=== PATIENT | male | born 1955 | race Caucasian/White ===

== ENCOUNTER 2016-09-29 22:41 | Emergency (ER) | payer MEDICARE, BC ==
[~2016-09-29] VITALS: Ht 182.9 cm; Wt 167.0 kg
[~2016-09-29 22:41] MED LIST: ALLO300T2 PO; AMIT100 PO; AMLO10 PO; ATOR80TA41 PO; BACT800T5 PO; CLON.2 PO; CLON1TAB PO; ECOT81TA2; FURO80 PO; GLUC1000 PO; INSU1.2I SQ; ISOS60 PO; KLOR20TA6 PO; LEVO50TA4 PO; LIDO5T TOP; LISI-366 PO; METO50CR PO; NEUR800T PO; OXYC30TA PO; PERC10TA27 PO; STAR60TA PO
--- NOTE | 2016-09-29 23:48 | RADRPT ---
EXAM DATE/TIME: 09/29/2016 23:21 [facility] COMPARISON: No previous studies available for comparison. INDICATIONS : Fall. Right knee pain. MEDICAL HISTORY : None. SURGICAL HISTORY : None. ENCOUNTER: Initial ACUITY: 1 day PAIN SCORE: 6/10 LOCATION: Right lateral FINDINGS: Four view examination of the right knee demonstrates no evidence of fracture or dislocation. Bony mi neralization is normal. The articular surfaces are intact. The suprapatellar soft tissues have a no rmal configuration. CONCLUSION: No acute osseous injury. Jose Ramon Pedersen MD on September 29, 2016 at 23:46 Board Certified Radiologist. This report was verified electronically.
--- NOTE | 2016-09-29 23:48 | RADRPT ---
EXAM DATE/TIME: 09/29/2016 23:16 [facility] COMPARISON: No previous studies available for comparison. INDICATIONS : Fall. Right lower leg pain. Abrasions. MEDICAL HISTORY : None. SURGICAL HISTORY : None. ENCOUNTER: Initial ACUITY: 1 day PAIN SCORE: 6/10 LOCATION: Right lateral FINDINGS: Two view examination of the right tibia demonstrates no evidence of fracture or dislocation. Perioste al thickening along the posterior proximal cortex of the tibia may represent a tendinous attachment. There is some atherosclerotic calcification of the regional vasculature. CONCLUSION: 1. No fracture. 2. Periosteal thickening along the posterior proximal diaphysis of the tibia is overtly benign and ma y represent a tendinous attachment. Jose Ramon Pedersen MD on September 29, 2016 at 23:44 Board Certified Radiologist. This report was verified electronically.
--- NOTE | 2016-09-30 00:05 | PD ---
HPI Chief Complaint: Fall Time Seen by Provider: 22:57 Travel History International Travel<30 days: No Contact w/Intl Traveler<30days: No Traveled to known affect area: No History of Present Illness HPI 61-year-old male presents to the ER today brought in by EMS because he states that he stepped in a mud puddle and slipped and fell onto his right leg. He has abrasions to his right leg. He is currently complaining of right leg pains. He denies any head injury, loss of consciousness, or any other injuries. Modifying Factors: None Associated Signs & Symptoms: Fall, right leg injury Risk Factors: None PFSH Past Medical History Diabetes: Yes Patient Takes Glucophage: No Hypertension: Yes ?: Not Past Surgical History Abdominal Surgery: Yes (LAP BAND, ) Cardiac Surgery: Yes (X CATH) Other Surgery: Yes (PYELONIAL CYST) Social History Alcohol Use: No Tobacco Use: Yes (PIPE AT TIMES ) Substance Use: No Allergies-Medications (Allergen,Severity, Reaction): Coded Allergies: No Known Allergies (Unverified , 09/29/16) Patient reports no known allergies. Reported Meds & Prescriptions Reported Meds & Active Scripts Active Bactrim DS (Sulfamethoxazole-Trimethoprim DS) 1 Tab Tab 1 Tab PO BID Reported Toujeo Solostar (Insulin Glargine) 300 Unit/Ml Inj 10 Units SQ DAILY Oxycodone (Oxycodone HCl) 30 Mg Tab 30 Mg PO Q6HR Norvasc (Amlodipine Besylate) 10 Mg Tab 10 Mg PO DAILY Metoprolol Succinate ER 50 mg (Metoprolol Succinate) 50 Mg Tab 50 Mg PO DAILY Lisinopril 40 mg (Lisinopril) 40 Mg Tab 1 Tab PO DAILY Lidoderm Patch 5% (Lidocaine HCl) 1 Patch Patch 1 Patch TOP DAILY Apply patch to the most painful area. Patch(es) may remain in place for up to 12 hours in any 24 hour period. Levothyroxine 50 mcg (Levothyroxine Sodium) 50 Mcg Tab 50 Mcg PO DAILY Klor-Con M20 (Potassium Chloride Microencaps) 20 Meq Tab 20 Meq PO BID Ecotrin Low Strength (Aspirin) 81 Mg Tab Catapres 0.2 mg (Clonidine HCl) 0.2 Mg Tab 1 Tab PO Q8HR Elavil 100 Mg Tab (Amitriptyline HCl) 100 Mg Tab 100 Mg PO HS Starlix (Nateglinide) 60 Mg Tab 60 Mg PO TID Percocet 10/325 (Oxycodone/Acetaminophen) Oxycodone 10/325 Acetaminophen Tab 1 Tab PO TID Neurontin (Gabapentin) 800 Mg Tab 800 Mg PO TID Glucophage 1000 mg (Metformin HCl) 1,000 Mg Tab 1,000 Mg PO BID Lipitor 80 Mg Tab (Atorvastatin) 80 Mg Tab 80 Mg PO DAILY Lasix 80 Mg Tab (Furosemide) 80 Mg Tab 80 Mg PO DAILY Imdur 60 Mg (Isosorbide Mononitrate) 60 Mg Tabcr 60 Mg PO BID Clonazepam 1 Mg Tab 1 Mg PO BID Allopurinol 300 Mg Tab 300 Mg PO DAILY Review of Systems Except as stated in HPI: all other systems reviewed are Neg Physical Exam Narrative GENERAL: Well-nourished, well-developed large middle age white male patient in no acute distress. Awake and oriented 3. SKIN: Warm and dry. HEAD: Normocephalic. EYES: No scleral icterus. No injection or drainage. NECK: Supple, trachea midline. CARDIOVASCULAR: Regular rate and rhythm without murmurs, gallops, or rubs. RESPIRATORY: Breath sounds equal bilaterally. No accessory muscle use. GASTROINTESTINAL: Abdomen soft, protuberant, non-tender, nondistended. Pelvis: Stable and nontender to palpation. MUSCULOSKELETAL: No cyanosis, or edema. BACK: Nontender without obvious deformity. No CVA tenderness. EXTREMITIES: No clubbing, cyanosis, or edema. No joint tenderness, effusion, or edema noted. Abrasions to the right lateral leg, tender palpation throughout from knee down to ankle. No obvious deformities. Neurovascularly intact. Data Data Orders Knee, Complete (4vws) (09/29/16 22:57) Tibia/Fibula (Ap/Lat) (09/29/16 22:57) [facility] Medical Decision Making Medical Screen Exam Complete: Yes Emergency Medical Condition: Yes Medical Record Reviewed: Yes Differential Diagnosis Abrasions versus contusion versus strain versus acute fractures Narrative Course X-ray shows no signs of acute fractures. I suspect underlying contusion and strain of the knee. Abrasions were irrigated and dressed. My plan would be put the patient in a knee immobilizer, decreased weightbearing on the right leg , follow-up with primary care physician and orthopedics as needed. Return for any worsening in pain or new symptoms as needed. The plan has been discussed with him and he states understanding. Diagnosis Primary Impression: Strain of knee and leg, right Med/Other Pt SpecificInfo: Prescription(s) given Scripts Ibuprofen (Motrin Ib)200 Mg Knx390 Mg PO Q6H PRN (PAIN SCALE 1 TO 10) #21 TAB Ref 0 Prov:Sergio Beyer MD 09/30/16 Bacitracin Topical 500 Unit/Gm Oint1 Applic TOPICAL BID #30 GM Ref 0 Prov:Sergio Beyer MD 09/30/16 Disposition: 01 DISCHARGE HOME Condition: Stable Sergio Beyer MD Sep 30, 2016 00:05
[2016-09-30] MEDS ORDERED: BACI500O9 TOPICAL (00:08)
[2016-09-30] MEDS ORDERED: MOTR200T4 PO (00:08)
[2016-09-30 00:32] VITALS: BP 171/88; PULSE 92; RESP 14; O2SAT 96
== END 2016-09-30 01:11 | disposition home or self-care (01) ==
LOC: NEPE 22:41
DX: S86.811A Strain of other muscle(s) and tendon(s) at lower leg level, right leg, initial encounter (principal); E11.9 Type 2 diabetes mellitus without complications; I10 Essential (primary) hypertension; Z72.0 Tobacco use; S80.811A Abrasion, right lower leg, initial encounter; W01.0XXA Fall on same level from slipping, tripping and stumbling without subsequent striking against object, initial encounter
CPT/HCPCS: 73564; 73590; 99284; E0113; L1830

== ENCOUNTER 2017-11-09 03:58 | Observation (INO) | payer BC, MEDICARE ==
[2017-11-09] VITALS (8 sets, daily range): BP systolic 110–173; BP diastolic 58–92; PULSE 81–92; RESP 17–20; TEMP 97.2–98.7; O2SAT 94–98
[~2017-11-09 03:58] MED LIST changes: +BACI500O9 TOPICAL; +MOTR200T4 PO
[2017-11-09] MEDS ORDERED: NITROGLYCERIN 2% OINT 1 GM PACKET TOP ONE (04:30)
[2017-11-09] MEDS ORDERED: SODIUM CHLORIDE 0.9% FLUSH 10 ML FLUSH IVF PRN (04:30)
--- NOTE | 2017-11-09 04:43 | PD ---
HPI Chief Complaint: Cardiac Complaint Time Seen by Provider: 04:07 Travel History International Travel<30 days: No Contact w/Intl Traveler<30days: No Traveled to known affect area: No History of Present Illness HPI The patient is a 62 year old male who presents to the [facility] emergency department with a history of chest pain that has been coming and going for the last few weeks and usually occurs at rest and even awakens him from sound sleep. He reports that he went to his eyeglass cutter, Dr. Rodas regarding this and had a stress test done last week that was reportedly abnormal. He is in the process of being referred to Dr. Shine for cardiac catheterization. He reports that he awoke from sound sleep around 2 AM with recurrent pain. He reports that the pain is in the left side of his chest and radiates the left arm. He reports that the pain is a pressure sensation that was severe. He reports having shortness of breath associated with this, nausea, diaphoresis. He reports that he took an adult aspirin prior to arrival. He denies having any vomiting. He last moved his bowels earlier today. He denies having any worsening lower extremity edema. He does report having a prior history of congestive heart failure. The patient reports having a history of a heart murmur, 20% stenosis of his aortic valve, and 3 other leaky valves. He denies any prior history of coronary artery disease. On review of systems otherwise, the patient denies having any recent fevers, cough, congestion, neck pain, abdominal pain, diarrhea, urinary symptoms, or neurologic symptoms. 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 The patient has a history of pilonidal cyst resection, deviated septum repair, lap band placement and then removal, history of arthroscopy of the knees. Abdominal Surgery: Yes (LAP BAND, ) Cardiac Surgery: Yes (X CATH) Other Surgery: Yes (PYELONIAL CYST) Social History Alcohol Use: No Tobacco Use: Yes (PIPE AT TIMES ) Substance Use: No Allergies-Medications (Allergen,Severity, Reaction): Coded Allergies: No Known Allergies (Unverified Adverse Reaction, Unknown, 11/09/17) Patient reports no known allergies. Reported Meds & Prescriptions Reported Meds & Active Scripts Active Reported Melatonin 10 Mg-1 Mg Tab 10 Mg PO HS PRN Nortriptyline (Nortriptyline HCl) 75 Mg Cap 75 Mg PO HS Lipitor (Atorvastatin Calcium) 80 Mg Tab 80 Mg PO HS Levothyroxine (Levothyroxine Sodium) 75 Mcg Tab 75 Mcg PO DAILY Clonazepam 1 Mg Tab 1 Mg PO HS Toujeo Solostar Pen Inj (Insulin Glargine) 300 Unit/Ml Pen 80 Units SQ DAILY Dok Plus 50-8.6 mg (Sennosides-Docusate Sodium) 8.6 Mg-50 Mg Tab 1 Tab PO DAILY Lisinopril 40 Mg Tab 40 Mg PO DAILY Victoza Inj (Liraglutide Inj) 18 Mg/3 Ml Pen 1.8 Mg SQ ONCE Aspirin 81 Mg Chew 81 Mg CHEW DAILY Invokana (Canagliflozin) 300 Mg Tab 300 Mg PO DAILY Take before 1st meal of day. Norvasc (Amlodipine Besylate) 10 Mg Tab 10 Mg PO DAILY Gabapentin 400 Mg Cap 400 Cap PO QID Metoprolol Tartrate 25 Mg Tab 25 Mg PO DAILY Metformin (Metformin HCl) 1,000 Mg Tab 1,000 Mg PO BIDPC Lasix (Furosemide) 40 Mg Tab 40 Mg PO DAILY Klor-Con M20 (Potassium Chloride Microencaps) 20 Meq Tab 20 Meq PO BID Clonidine (Clonidine HCl) 0.1 Mg Tab 0.1 Mg PO BID Allopurinol 300 Mg Tab 300 Mg PO DAILY Oxycodone (Oxycodone HCl) 30 Mg Tab 30 Mg PO 5 TIMES A DAY PRN Percocet (Oxycodone-Acetaminophen) 10-325 mg Tab 1 Tab PO Q6H PRN Review of Systems Except as stated in HPI: all other systems reviewed are Neg General / Constitutional: No: Fever Eyes: No: Visual changes HENT: No: Headaches Cardiovascular: Positive: Chest Pain or Discomfort, Diaphoresis, Dyspnea on exertion Respiratory: No: Shortness of Breath Gastrointestinal: Positive: Nausea, No: Abdominal Pain Genitourinary: No: Dysuria Musculoskeletal: No: Pain Skin: No Rash Neurologic: No: Weakness Psychiatric: No: Depression Endocrine: No: Polydipsia Hematologic/Lymphatic: No: Easy Bruising Physical Exam Narrative General: The patient is a well-developed well-nourished male in no acute distress. Head and Neck exam: Head is normocephalic atraumatic. Eyes: EOMI, pupils are equal round and reactive to light. Nose: Midline septum with pink mucous membranes Mouth: Dentition unremarkable. Moist mucus membranes. Posterior oropharynx is not erythematous. No tonsillar hypertrophy. Uvula midline. Airway patent. Neck: No palpable lymphadenopathy. No nuchal rigidity. No thyromegaly. Cardiovascular: Regular rate and rhythm with a 2/6 systolic murmur, no gallops or rubs. No pulse deficits to the extremities on simultaneous auscultation and palpation of his radial artery Lungs: Clear to auscultation bilaterally. No wheezes, rhonchi, or rales. Abdomen: Soft, without tenderness to palpation in all 4 quadrants of the abdomen. No guarding, rebound, or rigidity. Normal bowel sounds are audible. No tenderness on palpation of McBurney's point. Negative Lanier sign. Extremities: No clubbing or cyanosis. The patient has trace pedal edema bilateral lower extremities with hyperpigmentation of the lower extremities consistent with venous stasis changes. 2+ pulses in all 4 extremities. No calf tenderness on palpation. Back: No costovertebral angle tenderness to palpation. Neurologic Exam: Grossly nonfocal. Skin Exam: No rash noted. Intact skin that is warm and dry. Data Data Last Documented VS Vital Signs Date Time Temp Pulse Resp B/P (MAP) Pulse Ox O2 Delivery O2 Flow Rate FiO2 11/09/17 06:15 84 20 115/61 (79) 95 Room Air 11/09/17 04:00 97.2 Orders Orders Electrocardiogram (11/09/17 04:16) B-Type Natriuretic Peptide (11/09/17 04:16) Ckmb (Isoenzyme) Profile (11/09/17 04:16) Complete Blood Count With Diff (11/09/17 04:16) Comprehensive Metabolic Panel (11/09/17 04:16) Magnesium (Mg) (11/09/17 04:16) Prothrombin Time / Inr (Pt) (11/09/17 04:16) Act Partial Throm Time (Ptt) (11/09/17 04:16) Troponin I (11/09/17 04:16) Lipase (11/09/17 04:16) Ecg Monitoring (11/09/17 04:16) Bilateral Bp Monitoring (11/09/17 04:16) Iv Access Insert/Monitor (11/09/17 04:16) Oximetry (11/09/17 04:16) Oxygen Administration (11/09/17 04:16) Nitroglycerin 2% Oint (Nitroglycerin 2% (11/09/17 04:30) Sodium Chloride 0.9% Flush (Ns Flush) (11/09/17 04:30) Nitroglycerin Sl (Nitrostat Sl) (11/09/17 04:30) Chest, Single Ap (11/09/17 04:16) CKMB (11/09/17 04:30) CKMB% (11/09/17 04:30) Place In Observation (11/09/17 ) Vital Signs (Adult) Q4H (11/09/17 06:37) Activity Bed Rest With Brp (11/09/17 ) Master Control Operator / Telemetry BENITA.Q8H (11/09/17 06:37) Notify Dr: Other (11/09/17 ) Sodium Chloride 0.9% Flush (Ns Flush) (11/09/17 09:00) Sodium Chloride 0.9% Flush (Ns Flush) (11/09/17 06:45) Aspirin (Aspirin) (11/09/17 09:00) Nitroglycerin Sl (Nitrostat Sl) (11/09/17 06:45) Acetaminophen (Tylenol) (11/09/17 06:45) Acetamin-Hydrocod 325-7.5 Mg ([place] 7.5 (11/09/17 06:45) Creatine Kinase (Cpk) (11/09/17 10:30) Creatine Kinase (Cpk) (11/09/17 16:30) Troponin I (11/09/17 10:30) Troponin I (11/09/17 16:30) Electrocardiogram (11/09/17 10:30) Electrocardiogram (11/09/17 16:30) Heparin Inj (Heparin Inj) (11/09/17 08:00) Consult Cardiology (11/09/17 ) Allopurinol (Zyloprim) (11/09/17 09:00) Amlodipine (Norvasc) (11/09/17 09:00) Atorvastatin (Lipitor) (11/09/17 21:00) Clonazepam (Klonopin) (11/09/17 21:00) Clonidine (Catapres) (11/09/17 09:00) Furosemide (Lasix) (11/09/17 09:00) Gabapentin (Neurontin) (11/09/17 09:00) Levothyroxine (Synthroid) (11/09/17 07:16) Metoprolol Tartrate (Lopressor) (11/09/17 09:00) Nortriptyline (Pamelor) (11/09/17 21:00) Potassium Chloride (Kcl) (11/09/17 09:00) Patient Own Medication (11/09/17 09:00) Lisinopril (Prinivil) (11/09/17 09:00) Melatonin (Melatonin) (11/09/17 06:45) Bedside Glucose BENITA.CSUGAR (11/09/17 06:43) Special Diet Instructions (11/09/17 06:43) Blood Glucose Goal (Criteria) (11/09/17 06:43) Hypoglycemia 70 Mg/Dl Or < (11/09/17 06:43) Notify Dr: Other (11/09/17 06:43) Dextrose 50% In Ariel (Vial) Inj (D50w (Vi (11/09/17 06:45) Glucagon Inj (Glucagon Inj) (11/09/17 06:45) Insulin Aspart Supplemtl Scale (Novolog (11/09/17 08:00) (Hub Use Only)Inp Phy Cons/Ref (11/09/17 ) Morphine Inj (Morphine Inj) (11/09/17 06:45) Admit Order (Ed Use Only) (11/09/17 06:49) Labs Laboratory Tests Test 11/09/17 04:30 White Blood Count 8.1 TH/MM3 Red Blood Count 5.92 MIL/MM3 Hemoglobin 17.8 GM/DL Hematocrit 52.3 % Mean Corpuscular Volume 88.4 FL Mean Corpuscular Hemoglobin 30.1 PG Mean Corpuscular Hemoglobin Concent 34.1 % Red Cell Distribution Width 15.0 % Platelet Count 256 TH/MM3 Mean Platelet Volume 7.3 FL Neutrophils (%) (Auto) 54.5 % Lymphocytes (%) (Auto) 31.6 % Monocytes (%) (Auto) 11.8 % Eosinophils (%) (Auto) 1.7 % Basophils (%) (Auto) 0.4 % Neutrophils # (Auto) 4.4 TH/MM3 Lymphocytes # (Auto) 2.6 TH/MM3 Monocytes # (Auto) 1.0 TH/MM3 Eosinophils # (Auto) 0.1 TH/MM3 Basophils # (Auto) 0.0 TH/MM3 CBC Comment DIFF FINAL Differential Comment Prothrombin Time 10.3 SEC Prothromb Time International Ratio 1.0 RATIO Activated Partial Thromboplast Time 27.1 SEC Blood Urea Nitrogen 17 MG/DL Creatinine 1.11 MG/DL Random Glucose 241 MG/DL Total Protein 8.3 GM/DL Albumin 3.7 GM/DL Calcium Level 9.4 MG/DL Magnesium Level 2.3 MG/DL Alkaline Phosphatase 165 U/L Aspartate Amino Transf (AST/SGOT) 32 U/L Alanine Aminotransferase (ALT/SGPT) 42 U/L Total Bilirubin 0.8 MG/DL Sodium Level 139 MEQ/L Potassium Level 3.9 MEQ/L Chloride Level 102 MEQ/L Carbon Dioxide Level 26.0 MEQ/L Anion Gap 11 MEQ/L Estimat Glomerular Filtration Rate 68 ML/MIN Total Creatine Kinase 128 U/L Creatine Kinase MB 3.6 NG/ML Troponin I 0.03 NG/ML B-Type Natriuretic Peptide 28 PG/ML Lipase 132 U/L [facility] Medical Decision Making Medical Screen Exam Complete: Yes Emergency Medical Condition: Yes Medical Record Reviewed: Yes Interpretation(s) Last Impressions Chest X-Ray 11/09/17 9236 Signed Impressions: Service Date/Time: Thursday, November 09, 2017 04:57 - CONCLUSION: Mild left base consolidation. Vaughn Lopez MD Differential Diagnosis STEMI versus non-STEMI, versus unstable angina, versus angina, versus pulmonary embolism, versus congestive heart failure exacerbation Narrative Course During the course of the patient's emergency department visit, the patient's history, examination, and differential diagnosis were reviewed with the patient. The patient was placed on a environmental monitoring technician with oximetry and frequent blood pressure monitoring. The patient had IV access obtained and blood work sent for analysis. The patient had an EKG done on arrival that shows a sinus rhythm with occasional ventricular premature complexes. QRS duration is 94 ms, QTC [address] segment elevation is noted, downsloping ST segments are noted in lead II, 3. No acute ST segment elevation. The patient was initially provided nitroglycerin sublingual every 5 minutes 3 as needed chest pain, nitroglycerin 1 inch to the chest wall. The patient reports taking an adult aspirin prior to arrival. The patient's studies were reviewed and remarkable for A white count of 8.1, hemoglobin 17.8, platelets 256 with 11.8 monocytes, CMP is remarkable for glucose of 241, alk phos 165, initial set of cardiac enzymes within normal limits, [employer] 28, lipase 132. PT 10.3, PTT 27.1. Chest x-ray shows mild left base consolidation that appears consistent with atelectasis on my review. The patient's results were discussed with the patient, including the plan of care. I explained that further testing and/ or monitoring is indicated based on the patient's history, examination, and/ or laboratory findings. Therefore, I recommended admission for additional evaluation. The patient expressed understanding and was agreeable with this plan. The patient was admitted to the hospital in stable condition and sent to a bed under the care of the [facility] service. Physician Communication Physician Communication The patient's case including history, pertinent physical examination findings, and laboratory studies were discussed with Dr. Enciso. It was agreed that the patient would be admitted to the [facility] service. Diagnosis Primary Impression: Chest pain, rule out acute myocardial infarction Additional Impression: Abnormal stress test Admitting Information Admitting Physician Requests: Observation Melanie Oseguera MD Nov 09, 2017 04:43
[2017-11-09 05:13] LABS: AUTOMATED NEUTROPHIL # 4.4 TH/MM3 (1.8-7.7); BASOPHIL % 0.4 % (0.0-2.0); EOSINOPHIL # 0.1 TH/MM3 (0-0.4); EOSINOPHIL % 1.7 % (0.0-4.0); HEMATOCRIT 52.3 % (39.0-51.0); HEMOGLOBIN 17.8 GM/DL (13.0-17.0); LYMPH % 31.6 % (9.0-44.0); LYMPHOCYTE # 2.6 TH/MM3 (1.0-4.8); MEAN CELL VOLUME 88.4 FL (80.0-100.0); MEAN CORPUSCULAR HEMOGLOBIN 30.1 PG (27.0-34.0); MEAN CORPUSCULAR HGB CONC 34.1 % (32.0-36.0); MEAN PLATELET VOLUME 7.3 FL (7.0-11.0); MONO % 11.8 % (0.0-8.0); NEUT % 54.5 % (16.0-70.0); PLATELET COUNT 256 TH/MM3 (150-450); RED BLOOD COUNT 5.92 MIL/MM3 (4.50-5.90); WHITE BLOOD COUNT 8.1 TH/MM3 (4.0-11.0)
[2017-11-09 05:20] LABS: PROTHROMBIN TIME - PATIENT 10.3 SEC (9.8-11.6)
[2017-11-09] MEDS ORDERED: NORT75CA PO (05:30)
[2017-11-09] MEDS ORDERED: OXYC30TA PO (05:30)
[2017-11-09] MEDS ORDERED: AMLO10 PO (05:30)
[2017-11-09] MEDS ORDERED: DOKTAB2 PO (05:30)
[2017-11-09] MEDS ORDERED: METO25TA3 PO (05:30)
[2017-11-09] MEDS ORDERED: LISI40TA PO (05:30)
[2017-11-09] MEDS ORDERED: LIPI80TA PO (05:30)
[2017-11-09] MEDS ORDERED: METF1000 PO (05:30)
[2017-11-09] MEDS ORDERED: KLOR20TA3 PO (05:30)
[2017-11-09] MEDS ORDERED: CANA300T PO (05:30)
[2017-11-09] MEDS ORDERED: GABA400C5 PO (05:30)
[2017-11-09] MEDS ORDERED: CLON0.1T PO (05:30)
[2017-11-09] MEDS ORDERED: ASPI-516 CHEW (05:30)
[2017-11-09] MEDS ORDERED: MELA1TAB18 PO (05:30)
[2017-11-09] MEDS ORDERED: CLON1TAB PO (05:30)
[2017-11-09] MEDS ORDERED: VICT18IN SQ (05:30)
[2017-11-09] MEDS ORDERED: INSU1.2I SQ (05:30)
[2017-11-09] MEDS ORDERED: LEVO75TA3 PO (05:30)
[2017-11-09] MEDS ORDERED: FURO1TAB60 PO (05:30)
[2017-11-09] MEDS ORDERED: PERC10TA27 PO (05:30)
[2017-11-09] MEDS ORDERED: ALLO300T2 PO (05:30)
[2017-11-09 05:44] LABS: ALT (GPT) 42 U/L (12-78)
--- NOTE | 2017-11-09 05:44 | RADRPT ---
EXAM DATE/TIME: 11/09/2017 04:57 [facility] COMPARISON: No previous studies available for comparison. INDICATIONS : Chest pain. MEDICAL HISTORY : None. SURGICAL HISTORY : None. ENCOUNTER: Initial ACUITY: 1 day PAIN SCORE: 5/10 LOCATION: Bilateral chest FINDINGS: Partially obscured left hemidiaphragm. Right lung clear. No pleural effusion or pneumothorax. Heart s ize upper limits of normal. CONCLUSION: Mild left base consolidation. Vaughn Lopez MD on November 09, 2017 at 5:42 Board Certified Radiologist. This report was verified electronically.
[2017-11-09 05:56] LABS: ALBUMIN 3.7 GM/DL (3.4-5.0); ALKALINE PHOSPHATASE 165 U/L (45-117); AST (GOT) 32 U/L (15-37); BLOOD UREA NITROGEN 17 MG/DL (7-18); CALCIUM 9.4 MG/DL (8.5-10.1); CHLORIDE 102 MEQ/L (98-107); CREATININE 1.11 MG/DL (0.60-1.30); GLOMERULAR FILTRATION RATE 68 ML/MIN (>89); GLUCOSE,RANDOM 241 MG/DL (74-106); MAGNESIUM 2.3 MG/DL (1.5-2.5); SODIUM (NA) 139 MEQ/L (136-145); TOTAL BILIRUBIN ADULT 0.8 MG/DL (0.2-1.0); TOTAL PROTEIN 8.3 GM/DL (6.4-8.2); TROPONIN I 0.03 NG/ML (0.02-0.05)
[2017-11-09] MEDS ORDERED: ACETAMINOPHEN/HYDROcodone 325 MG/7.5 MG TAB PO PRN (06:45)
[2017-11-09] MEDS ORDERED: NITROGLYCERIN 0.4 MG SL 25 TABS/BTL SL PRN (06:45)
[2017-11-09] MEDS ORDERED: MORPHINE SULFATE 2 MG/ML SYRINGE IV PUSH PRN (06:45)
[2017-11-09] MEDS ORDERED: GLUCAGON 1 MG/ML VIAL OTHER PRN (06:45)
[2017-11-09] MEDS ORDERED: ACETAMINOPHEN 500 MG CPLT PO PRN (06:45)
[2017-11-09] MEDS ORDERED: SODIUM CHLORIDE 0.9% FLUSH 10 ML FLUSH IV FLUSH PRN (06:45)
[2017-11-09] MEDS ORDERED: DEXTROSE 50% IN WATER 50 ML VIAL(D50) IV PUSH PRN (06:45)
[2017-11-09] MEDS ORDERED: MELATONIN 5 MG TAB PO PRN (06:45)
[2017-11-09] MEDS ORDERED: IOHEXOL 350 MG/ML 100 ML BTL (for Cath Lab) OTHER ONE (06:51)
[2017-11-09] MEDS ORDERED: HEPARIN SODIUM - SQ 10,000 UNITS/ML VIAL SQ SCH (08:00)
--- NOTE | 2017-11-09 08:01 | HHI.HP ---
[facility] Chon Goodwin D.O. Admission Diagnosis cp r/o ACS, h/o abnormal stress test Diagnoses: (1) Chest pain, rule out acute myocardial infarction Diagnosis: Principal Chief Complaint: chest pain Travel History International Travel<30 Days: No Contact w/Intl Traveler <30 Da: No Traveled to Known Affected Are: No History of Present Illness patient is a 62 y/o male with history of hypertension and diabetes who presented to ER with chest pain. he says that he's had on and off chest pain for the past month. he says that he has this pain when he's resting. he says that he woke up around two in the morning with chest pain. pain was localized to left upper chest with some radiation to the left arm. he didn't have any nausea, emesis or diaphoresis but had some sob. he says that he had a stress test about a week ago and ' he failed it'. he was in the process of seeing for cardiac cath.he's being followed up by . he says that he's been under a lot of stress lately. he was pain free at the time of my evaluation. Review of Systems Constitutional: DENIES: Fever, Weight loss, Chills, Night Sweats Eyes: DENIES: Blurred vision, Diplopia, Vision loss, Double Vision Ears, nose, mouth, throat: DENIES: Tinnitus, Vertigo, Throat pain, Epistaxis Respiratory: COMPLAINS OF: Shortness of breath, DENIES: Apneas, Cough, Snoring , Wheezing, Hemoptysis, Sputum production Cardiovascular: COMPLAINS OF: Chest pain, DENIES: Palpitations, Syncope, Dyspnea on Exertion, PND, Lower Extremity Edema, Orthopnea, Claudication Gastrointestinal: DENIES: Abdominal pain, Black stools, Bloody stools, Constipation, Diarrhea, Nausea, Vomiting, Difficulty Swallowing, Anorexia Genitourinary: DENIES: Urinary frequency, Urgency, Hematuria, Dysuria Musculoskeletal: DENIES: Joint pain, Muscle aches, Stiffness, Joint Swelling Integumentary: DENIES: Rash Neurologic: DENIES: Abnormal gait, Headache, Localized weakness, Paresthesias, Seizures, Speech Problems, Tremor, Poor Balance Psychiatric: DENIES: Anxiety, Confusion, Mood changes, Depression, Hallucinations, Agitation, Suicidal Ideation, Homicidal Ideation, Delusions Past Family Social History Past Medical History hypertension/ diabetes mellitus/ dyslipidemia/hypothyroidism/CHF? Past Surgical History cardiac cath. Reported Medications Melatonin 10 Mg-1 Mg Tab 10 Mg PO HS PRN Nortriptyline (Nortriptyline HCl) 75 Mg Cap 75 Mg PO HS Lipitor (Atorvastatin Calcium) 80 Mg Tab 80 Mg PO HS Levothyroxine (Levothyroxine Sodium) 75 Mcg Tab 75 Mcg PO DAILY Clonazepam 1 Mg Tab 1 Mg PO HS Toujeo Solostar Pen Inj (Insulin Glargine) 300 Unit/Ml Pen 80 Units SQ DAILY Dok Plus 50-8.6 mg (Sennosides-Docusate Sodium) 8.6 Mg-50 Mg Tab 1 Tab PO DAILY Lisinopril 40 Mg Tab 40 Mg PO DAILY Victoza Inj (Liraglutide Inj) 18 Mg/3 Ml Pen 1.8 Mg SQ ONCE Aspirin 81 Mg Chew 81 Mg CHEW DAILY Invokana (Canagliflozin) 300 Mg Tab 300 Mg PO DAILY Take before 1st meal of day. Norvasc (Amlodipine Besylate) 10 Mg Tab 10 Mg PO DAILY Gabapentin 400 Mg Cap 400 Cap PO QID Metoprolol Tartrate 25 Mg Tab 25 Mg PO DAILY Metformin (Metformin HCl) 1,000 Mg Tab 1,000 Mg PO BIDPC Lasix (Furosemide) 40 Mg Tab 40 Mg PO DAILY Klor-Con M20 (Potassium Chloride Microencaps) 20 Meq Tab 20 Meq PO BID Clonidine (Clonidine HCl) 0.1 Mg Tab 0.1 Mg PO BID Allopurinol 300 Mg Tab 300 Mg PO DAILY Oxycodone (Oxycodone HCl) 30 Mg Tab 30 Mg PO 5 TIMES A DAY PRN Percocet (Oxycodone-Acetaminophen) 10-325 mg Tab 1 Tab PO Q6H PRN Allergies: Coded Allergies: No Known Allergies (Unverified Adverse Reaction, Unknown, 11/09/17) Patient reports no known allergies. Active Ordered Medications Inpatient Medications Acetaminophen (Tylenol) 500 mg Q4H PRN PO HEADACHE; Start 11/09/17 at 06:45 Acetaminophen/ Hydrocodone Bitart ([place]illa 7.5-325 Mg) 1 tab Q4H PRN PO PAIN SCALE 1 TO 5; Start 11/09/17 at 06:45 Allopurinol (Zyloprim) 300 mg DAILY PO ; Start 11/09/17 at 09:00 Amlodipine Besylate (Norvasc) 10 mg DAILY PO ; Start 11/09/17 at 09:00 Aspirin (Aspirin) 325 mg DAILY PO ; Start 11/09/17 at 09:00 Atorvastatin Calcium (Lipitor) 80 mg HS PO ; Start 11/09/17 at 21:00 Clonazepam (KlonoPIN) 1 mg HS PO ; Start 11/09/17 at 21:00 Clonidine (Catapres) 0.1 mg BID PO ; Start 11/09/17 at 09:00 Dextrose (D50w (Vial) Inj) 50 ml UNSCH PRN IV PUSH HYPOGLYCEMIA-SEE COMMENTS; Start 11/09/17 at 06:45 Furosemide (Lasix) 40 mg DAILY PO ; Start 11/09/17 at 09:00 Gabapentin (Neurontin) 400 mg QID PO ; Start 11/09/17 at 09:00 Glucagon (Glucagon Inj) 1 mg UNSCH PRN OTHER HYPOGLYCEMIA-SEE COMMENTS; Start 11/09/17 at 06:45 Heparin Sodium (Porcine) (Heparin Inj) 5,000 units Q8H SQ ; Start 11/09/17 at 08 :00 Insulin Aspart (NovoLOG SUPPLEMENTAL SCALE) 1 ACHS SLIDING SCALE SQ ; Start at 08:00 Levothyroxine Sodium (Synthroid) 75 mcg DAILY@0600 PO ; Start 11/09/17 at 07:16 Lisinopril (Prinivil) 40 mg DAILY PO ; Start 11/09/17 at 09:00 Melatonin (Melatonin) 10 mg HS PRN PO SLEEP; Start 11/09/17 at 06:45 Metoprolol Tartrate (Lopressor) 25 mg DAILY PO ; Start 11/09/17 at 09:00 Morphine Sulfate (Morphine Inj) 2 mg Q3HR PRN IV PUSH PAIN SCALE 6 TO 10; Start 11/09/17 at 06:45 Nitroglycerin (Nitroglycerin 2% Oint) 1 inch ONCE ONCE TOP Last administered on 11/09/17at 04:47; Start 11/09/17 at 04:30; Stop 11/09/17 at 04:31; Status DC Nitroglycerin (Nitrostat Sl) 0.4 mg Q5M PRN SL ANGINA; Start 11/09/17 at 06:45 Nortriptyline HCl (Pamelor) 75 mg HS PO ; Start 11/09/17 at 21:00 Patient Own Medication 80 ea DAILY SQ ; Start 11/09/17 at 09:00 Potassium Chloride (KCl) 20 meq BID PO ; Start 11/09/17 at 09:00 Sodium Chloride (NS Flush) 2 ml UNSCH PRN IV FLUSH FLUSH AFTER USING IV ACCESS ; Start 11/09/17 at 06:45 Family History CAD in father. Social History smokes cigars occasionally- Physical Exam Vital Signs Vital Signs Date Time Temp Pulse Resp B/P (MAP) Pulse Ox O2 Delivery O2 Flow Rate FiO2 11/09/17 06:15 84 20 115/61 (79) 95 Room Air 11/09/17 04:49 91 20 115/59 (77) 95 Room Air 11/09/17 04:00 97.2 89 18 173/92 (119) 94 Physical Exam GENERAL: This is a well-nourished, well-developed patient, in no apparent distress. SKIN: No rashes, ecchymoses or lesions. Cool and dry. HEAD: Atraumatic. Normocephalic. No temporal or scalp tenderness. EYES: Pupils equal round and reactive. Extraocular motions intact. No scleral icterus. No injection or drainage. ENT: Nose without bleeding, purulent drainage or septal hematoma. Throat without erythema, tonsillar hypertrophy or exudate. Uvula midline. Airway patent. NECK: Trachea midline. No JVD or lymphadenopathy. Supple, nontender, no meningeal signs. CARDIOVASCULAR: Regular rate and rhythm without murmurs, gallops, or rubs. RESPIRATORY: Clear to auscultation. Breath sounds equal bilaterally. No wheezes , rales, or rhonchi. GASTROINTESTINAL: Abdomen soft, non-tender, nondistended. No hepato-splenomegaly , or palpable masses. No guarding. MUSCULOSKELETAL: Extremities without clubbing, cyanosis, or edema. No joint tenderness, effusion, or edema noted. No calf tenderness. Negative Homans sign bilaterally. NEUROLOGICAL: Awake and alert. Cranial nerves II through XII intact. Motor and sensory grossly within normal limits. Five out of 5 muscle strength in all muscle groups. Normal speech. Laboratory Laboratory Tests Test 11/09/17 04:30 White Blood Count 8.1 Red Blood Count 5.92 Hemoglobin 17.8 Hematocrit 52.3 Mean Corpuscular Volume 88.4 Mean Corpuscular Hemoglobin 30.1 Mean Corpuscular Hemoglobin Concent 34.1 Red Cell Distribution Width 15.0 Platelet Count 256 Mean Platelet Volume 7.3 Neutrophils (%) (Auto) 54.5 Lymphocytes (%) (Auto) 31.6 Monocytes (%) (Auto) 11.8 Eosinophils (%) (Auto) 1.7 Basophils (%) (Auto) 0.4 Neutrophils # (Auto) 4.4 Lymphocytes # (Auto) 2.6 Monocytes # (Auto) 1.0 Eosinophils # (Auto) 0.1 Basophils # (Auto) 0.0 CBC Comment DIFF FINAL Differential Comment Prothrombin Time 10.3 Prothromb Time International Ratio 1.0 Activated Partial Thromboplast Time 27.1 Blood Urea Nitrogen 17 Creatinine 1.11 Random Glucose 241 Total Protein 8.3 Albumin 3.7 Calcium Level 9.4 Magnesium Level 2.3 Alkaline Phosphatase 165 Aspartate Amino Transf (AST/SGOT) 32 Alanine Aminotransferase (ALT/SGPT) 42 Total Bilirubin 0.8 Sodium Level 139 Potassium Level 3.9 Chloride Level 102 Carbon Dioxide Level 26.0 Anion Gap 11 Estimat Glomerular Filtration Rate 68 Total Creatine Kinase 128 Creatine Kinase MB 3.6 Troponin I 0.03 B-Type Natriuretic Peptide 28 Lipase 132 Result Diagram: 11/09/1742911/09/17429 Imaging Last Impressions Chest X-Ray 11/09/17415 Signed Impressions: Service Date/Time: Thursday, November 09, 2017 04:57 - CONCLUSION: Mild left base consolidation. Vaughn Lopez MD Caprini VTE Risk Assessment Caprini VTE Risk Assessment: Mod/High Risk (score >= 2) Caprini Risk Assessment Model Point Value = 1 Point Value = 2 Point Value = 3 Point Value = 5 Age 41-60 Minor surgery BMI > 25 kg/m2 Swollen legs Varicose veins or History of unexplained or recurrent spontaneous Oral contraceptives or hormone replacement Sepsis (< 1 month) Serious lung disease, including pneumonia (< 1 month) Abnormal pulmonary function Acute myocardial infarction Congestive heart failure (< 1 month) History of inflammatory bowel disease Medical patient at bed rest Age 61-74 Arthroscopic surgery Major open surgery (> 45 min) Laparoscopic surgery (> 45 min) Malignancy Confined to bed (> 72 hours) Immobilizing plaster cast Central venous access Age >= 75 History of VTE Family history of VTE Factor V Leiden Prothrombin [id number] Lupus anticoagulant Anticardiolipin antibodies Elevated serum homocysteine Heparin-induced thrombocytopenia Other congenital or acquired thrombophilia Stroke (< 1 month) Elective arthroplasty Hip, pelvis, or leg fracture Acute spinal cord injury (< 1 month) Prophylaxis Regimen Total Risk Factor Score Risk Level Prophylaxis Regimen 0-1 Low Early ambulation 2 Moderate Order ONE of the following: *Sequential Compression Device (SCD) *Heparin 5000 units SQ BID 3-4 Higher Order ONE of the following medications: *Heparin 5000 units SQ TID *Enoxaparin/Lovenox 40 mg SQ daily (WT < 150 kg, CrCl > 30 mL/min) *Enoxaparin/Lovenox 30 mg SQ daily (WT < 150 kg, CrCl > 10-29 mL/min) *Enoxaparin/Lovenox 30 mg SQ BID (WT < 150 kg, CrCl > 30 mL/min) AND/OR *Sequential Compression Device (SCD) 5 or more Highest Order ONE of the following medications: *Heparin 5000 units SQ TID (Preferred with Epidurals) *Enoxaparin/Lovenox 40 mg SQ daily (WT < 150 kg, CrCl > 30 mL/min) *Enoxaparin/Lovenox 30 mg SQ daily (WT < 150 kg, CrCl > 10-29 mL/min) *Enoxaparin/Lovenox 30 mg SQ BID (WT < 150 kg, CrCl > 30 mL/min) AND *Sequential Compression Device (SCD) Assessment and Plan Assessment and Plan A/P - chest pain- reportedly had an abnormal stress test last week trend the cardiac enzymes- continue aspirin, BB and statin - consult cardiology. -hypertension; resume home meds- will monitor and adjust the regimen as needed. -diabetes mellitus; accu-check with SSI -history of CHF- continue lasix -hypothyroidism; resume Levothyroxine -DVT prophylaxis with subq Heparin Discussed Condition With the patient. Kayli Pascal MD Nov 09, 2017 08:01
[2017-11-09] MEDS: NITROGLYCERIN 0.4 MG SL 25 TABS/BTL SL SCH (08:44)
[2017-11-09] MEDS: cloNIDine HCL 0.1 MG TAB PO SCH ×2 (09:00→21:13)
[2017-11-09] MEDS ORDERED: METOPROLOL TARTRATE 25 MG TAB PO SCH (09:00)
[2017-11-09] MEDS ORDERED: INSULIN GLARGINE 80 UNIT SQ SCH (09:00)
[2017-11-09] MEDS ORDERED: [UNRECOGNIZED DRUG - OTHER] SQ SCH (09:00)
[2017-11-09] MEDS: SODIUM CHLOR 0.9% 1000 ML INJ 1,000 ML IV SCH (09:34)
[2017-11-09] MEDS ORDERED: diphenhydrAMINE HCL 50 MG CAP PO SCH (09:45)
[2017-11-09] MEDS ORDERED: HEPARIN-D5W 25,000 U/250 ML 250 ML IV PRN (09:45)
[2017-11-09] MEDS ORDERED: DIAZEPAM 5 MG TAB PO SCH (09:45)
[2017-11-09] MEDS ORDERED: HEPARIN SODIUM - IV 10,000 UNITS/10 ML VIAL IV PUSH ONE (09:45)
[2017-11-09] MEDS: FUROSEMIDE 40 MG TAB PO SCH (09:53)
[2017-11-09] MEDS: ASPIRIN 325 MG TAB PO SCH (09:53)
[2017-11-09] MEDS: LEVOTHYROXINE SODIUM 75 MCG TAB PO SCH (09:53)
[2017-11-09] MEDS: LISINOPRIL 20 MG TAB PO SCH (09:53)
[2017-11-09] MEDS: ALLOPURINOL 300 MG TAB PO SCH (09:53)
[2017-11-09] MEDS: GABAPENTIN 400 MG CAP PO SCH ×4 (09:53→21:13)
[2017-11-09] MEDS: SODIUM CHLORIDE 0.9% FLUSH 10 ML FLUSH IV FLUSH SCH ×2 (09:54→21:14)
[2017-11-09] MEDS: POTASSIUM CHLORIDE 20 MEQ CONTROLLED RELEASE TAB PO SCH ×2 (09:54→22:40)
--- NOTE | 2017-11-09 10:04 | MB ---
cc: Jude Oseguera MD DATE: 11/02/2017 REASON FOR CONSULTATION: Evaluation of chest pain. HISTORY OF PRESENT ILLNESS: Lloyd Wolfe is a 62-year-old man with multiple cardiac risk factors, admitted to the hospital with chest pain. The patient has chest pain going back a number of years. He has had a previous cardiac catheterization in 2004 and also in 2007 that apparently were unremarkable. He has multiple cardiac risk factors. He is morbidly obese. He has hypertension. He has hyperlipidemia. His father had open heart bypass surgery. He smokes a pipe. He is not known to be diabetic, however. He says he has been having chest pain for about a month. It is like a cinder block sitting on his left chest with radiation down the left arm to the elbow. It lasts anywhere from 2 minutes to 15-20 minutes. When it is longer in duration, the pain is usually more intense. He noticed increased saliva in his mouth when he has the chest pains. He has chest pain sometimes associated with shortness of breath and sweating. Chest pains usually happen when sitting or sleeping; it is usually not during activity, although he is not that physically active. He had a severe episode that woke him up at 2 in the morning and he came to the hospital. The patient had a nuclear stress test 11/03/2017 showing a large fixed anterior defect. He had an echo on 08/20/2017 showing a mean aortic valve gradient of 27 mm and a peak aortic valve gradient of 48 mm consistent with moderate aortic stenosis. He had mild left ventricular hypertrophy with normal LV function. Supposedly he has had 4 TIAs. Last carotid Doppler study in 2014 showed less than 25% disease bilaterally. PAST MEDICAL HISTORY: Includes: 1. Aortic stenosis thought to be moderate. 2. Degenerative disc disease in his neck and back on chronic opiate therapy 3. Morbid obesity with hypertension, hyperlipidemia, spinal stenosis. 4. Four previous TIAs between 1986 and 2007. 5. Kidney stones. 6. Sleep apnea for which he uses CPAP. 7. Lyme encephalitis in 1991 8. 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 He is . He has 2 sons. He has smoked a pipe. FAMILY HISTORY: Mother had a pacemaker. Father had bypass surgery. REVIEW OF SYSTEMS: Very painful knees. She says they are [id number]. No bleeding. Remainder of review of systems negative. PHYSICAL EXAMINATION: GENERAL: Morbidly obese white male, alert and oriented and in no acute distress. VITAL SIGNS: Charted. HEENT: Unremarkable. NECK: Shows no JVD, no bruits. CHEST: Clear to auscultation. CARDIOVASCULAR: Distant S1, S2. Very soft 1/6 systolic murmur of aortic stenosis, but difficult to hear. ABDOMEN: Soft, nontender. 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 He has got 1+ edema at the ankles. I can feel the right dorsalis pedis pulse. I cannot appreciate the other pedal pulses. Femoral pulses are palpable but deep. Radial pulses are excellent on the left, palpable on the right, but not as good as on the left. DATA: EKG shows sinus rhythm, poor R-wave progression, nonspecific ST-T wave changes. LABORATORY DATA: Creatinine is 1.11. He is polycythemic with a hematocrit of 52.3. IMPRESSION: A 62-year-old male with multiple cardiac risk factors with chest pain suggestive of ischemia. Nuclear stress test may not be that helpful due to the morbid obesity. I am in agreement with Dr. Rodas, the patient needs to have a diagnostic cardiac catheterization. PLAN: The patient is scheduled for a diagnostic cardiac catheterization at 07:30 tomorrow morning with possible intervention. Plan to do this radially because of the morbid obesity. Further therapy to be determined. Informed consent has been obtained by myself. MD ROMEL Chun/JESUS , 09:45 AM , 10:03 AM
[2017-11-09] MEDS: INSULIN ASPART SUPPLEMENTAL SCALE SQ SCH ×4 (11:03→21:14)
[2017-11-09 11:45] LABS: TROPONIN I 0.04 NG/ML (0.02-0.05)
[2017-11-09] MEDS: NITROGLYCERIN 2% OINT 1 GM PACKET TOPICAL SCH ×3 (12:00→22:41)
--- NOTE | 2017-11-09 13:56 | ECHRPT ---
Indication: Chest Pain CONCLUSIONS The left ventricular systolic function is normal with an estimated ejection fraction of 55%. Mild concentric left ventricular hypertrophy. Normal left ventricular size. The left atrial size is mildly dilated. Diffuse calcification of the aortic valve. Mild aortic valve stenosis. Aortic valve area is 1.23 cm. Aortic valve mean gradient is 26 mmHg. [id number] aortic valve regurgitation. BP: 119 / 58 HR: 77 Rhythm: Sinus Technical Quality:Very technically difficult study FINDINGS LEFT VENTRICLE The left ventricular systolic function is normal with an estimated ejection fraction of 55%. Mild concentric left ventricular hypertrophy. Normal left ventricular size. RIGHT VENTRICLE Normal right ventricular size and systolic function. LEFT ATRIUM The left atrial size is mildly dilated. RIGHT ATRIUM The right atrial size is normal. ATRIAL SEPTUM Normal atrial septal thickness without atrial level shunting by limited color doppler interrogation. AORTA The aortic root and proximal ascending aorta are normal in size on limited imaging. MITRAL VALVE Structurally normal mitral valve. No mitral valve stenosis or regurgitation. AORTIC VALVE Trileaflet aortic valve. Diffuse calcification of the aortic valve. Mild aortic valve stenosis. Aortic valve area is 1.23 cm. Aortic valve mean gradient is 26 mmHg. [id number] aortic valve regurgitation. TRICUSPID VALVE Structurally normal tricuspid valve. No tricuspid valve stenosis or regurgitation. PULMONARY VALVE No pulmonary valve regurgitation or stenosis. VESSELS The inferior vena cava is normal in size. PERICARDIUM No pericardial effusion. Mayela Allen MD, FACC (Electronically Signed) Final Date:09 November 2017 13:55
--- NOTE | 2017-11-09 15:45 | EKG ---
Date Performed: 11/09/2017 Time Performed: 04:10:03 PTAGE: 62 years EKG: Sinus rhythm WITH OCCASIONAL VENTRICULAR PREMATURE COMPLEXES POSSIBLE LEFT ATRIAL ENLARGEMENT Consider ANTERIOR M YOCARDIAL INFARCTION - age indeterminate ABNORMAL ECG NO PREVIOUS TRACING DOCTOR: Evan Cates Interpretating Date/Time 11/09/2017 15:44:11
[2017-11-09 17:20] LABS: TROPONIN I 0.03 NG/ML (0.02-0.05)
[2017-11-09] MEDS ORDERED: clonazePAM 1 MG TAB PO SCH (21:00)
[2017-11-09] MEDS ORDERED: NORTRIPTYLINE HCL 25 MG CAP PO SCH (21:00)
[2017-11-09] MEDS ORDERED: ATORVASTATIN 80 MG TAB PO SCH (21:00)
[2017-11-09] MEDS: METOPROLOL TARTRATE 25 MG TAB PO SCH (21:14)
[2017-11-10] MEDS: SODIUM CHLOR 0.9% 1000 ML INJ 1,000 ML IV SCH ×2 (01:59→04:15)
[2017-11-10 02:02] VITALS: BP 143/70; PULSE 70; RESP 17; TEMP 97.1; O2SAT 97
[2017-11-10 03:33] VITALS: PULSE 77
[2017-11-10 04:32] LABS: AUTOMATED NEUTROPHIL # 3.5 TH/MM3 (1.8-7.7); BASOPHIL % 0.5 % (0.0-2.0); EOSINOPHIL # 0.2 TH/MM3 (0-0.4); EOSINOPHIL % 2.4 % (0.0-4.0); HEMOGLOBIN 15.8 GM/DL (13.0-17.0); LYMPH % 31.6 % (9.0-44.0); MEAN CELL VOLUME 88.5 FL (80.0-100.0); MEAN CORPUSCULAR HEMOGLOBIN 29.8 PG (27.0-34.0); MEAN CORPUSCULAR HGB CONC 33.6 % (32.0-36.0); MEAN PLATELET VOLUME 6.6 FL (7.0-11.0); MONOCYTE # 0.6 TH/MM3 (0-0.9); NEUT % 55.5 % (16.0-70.0); PLATELET COUNT 236 TH/MM3 (150-450); RED BLOOD COUNT 5.31 MIL/MM3 (4.50-5.90); RED CELL DISTRIBUTION WIDTH 15.4 % (11.6-17.2); WHITE BLOOD COUNT 6.3 TH/MM3 (4.0-11.0)
[2017-11-10] MEDS: LEVOTHYROXINE SODIUM 75 MCG TAB PO SCH (06:43)
[2017-11-10] MEDS: NITROGLYCERIN 2% OINT 1 GM PACKET TOPICAL SCH ×2 (06:44→12:00)
[2017-11-10] MEDS ORDERED: CHLORHEXIDINE GLUCONATE 2 % 1 PACK (2 CLOTHS) TOPICAL PRN (06:45)
[2017-11-10] MEDS ORDERED: LACTATED RINGER'S 1000 ML IV PRN (06:45)
[2017-11-10] MEDS ORDERED: METOPROLOL TARTRATE 25 MG TAB PO PRN (06:45)
[2017-11-10] MEDS ORDERED: SODIUM CHLORID 0.9% 500 ML IV PRN (06:45)
[2017-11-10] MEDS ORDERED: POVIDONE IODINE 5% (ANTISEPSIS KIT) 4 APPLICATIONS EACH NARE PRN (06:45)
[2017-11-10] MEDS ORDERED: HEPARIN-NS/PF FLUSH BAG 2,000 ML IV FLUSH ONE (07:23)
[2017-11-10] MEDS ORDERED: HEPARIN SODIUM - IV 10,000 UNITS/10 ML VIAL ONE (07:42)
[2017-11-10] MEDS ORDERED: VERAPAMIL HCL 5 MG/2 ML VIAL ONE (07:42)
[2017-11-10 07:47] VITALS: BP 160/100; PULSE 75
[2017-11-10] MEDS ORDERED: NITROGLYCERIN-D5W 50 MG/250 ML 250 ML ONE (07:47)
[2017-11-10] MEDS ORDERED: MIDAZOLAM HCL 2 MG/2 ML VIAL ONE ×2 (07:49→07:56)
[2017-11-10] MEDS ORDERED: LIDOCAINE HCL 2% 20 ML VIAL ONE (07:50)
[2017-11-10] MEDS: INSULIN ASPART SUPPLEMENTAL SCALE SQ SCH ×2 (08:00→12:00)
[2017-11-10] MEDS ORDERED: CANGRELOR TETRASODIUM 50,000 MCG VIAL ONE (08:07)
[2017-11-10] MEDS ORDERED: TICAGRELOR 90 MG TAB PO ONE (08:38)
[2017-11-10] MEDS: SODIUM CHLORIDE 0.9% FLUSH 10 ML FLUSH IV FLUSH SCH (09:00)
--- NOTE | 2017-11-10 09:11 | CATHPROC ---
[facility] HIS Report Study Information Study Number Admission Scheduled Start Study Start [id number] Nov 09 2017 6:50AM 11/09/2017 Nov 10 2017 6:57AM [place] [facility] Cardiac Catheterization Admit Source Facility Department Emergency department [facility] - [place] Installer Helper Physician and Clinical Staff Initial Jude Sharma Auto Bench Mechanickyle Pardo RN, Kimberlee Moore,RN Recorder Genet Thorpe ,RT(R) Scrub Anthony Haines RCIS(BS) Procedures Performed Procedure Location (Site) Vessel Name Angiogram LV LV Ventricle Coronary Angiograms LCA Left Coronary Coronary Angiograms RCA Right Coronary Drug Eluting Inflatio LAD Prox Left Coronary IVUS Radial (right) Radial Art. L Heart Cath Wire insertion Radial (right) Radial Art. Equipment Time Livestock Exhibitor Description Size Mfg Part Number Used/Scraped WIRE, BALANCE MIDDLEWEIGHT [id number] 08:10 [employer] 190CM Used 190CM *[id number] TRANSDUCER, TRUWAVE [id number] 07:50 DIALLO CUTLER * Used W/STOCKCOCK *[id number] [id number] *[id number] *[id number] 07:50 MALLINCKRODT SYRINGE, ANGIOMAT 150ML 150ML *[id number] Used 2SUB [id number] 07:50 [employer] PACK, CCL CUSTOM * Used *[id number] 07:50 [employer] SUPPORT, ARTERIAL ADULT 38695 *[id number] Used [id number] 07:50 1000[employer]ories PACER PEN, SKIN DUAL W/ RULER * Used *[id number] 08:06 MEDTRONIC JR 5.0 DXTERITY CATHETER fr 5 [id number] Used [id number] 08:28 MEDTRONIC STENT, 4.0 15MM CAMILLE 4.0 15MM Used *[id number] 08:10 [employer] MEDICAL 30 EPIFANIO INDEFLATOR Used *[id number] BAND, RADIAL COMPRESSION TR [id number] 08:48 [employer] MEDICAL 29CM Used LARGE 29 *[id number] 07:50 Ark WIRE, EXCHANGE 260CM 3MMJ 260CM Used *[id number] [id number] 07:50 NAMIC MANIFOLD, 4 PORT * Used *[id number] 07:50 NYCOMED OMNIPAQUE, 350 MG, 100ML 100ML [id number] Used [id number] 07:50 MCCARTHY MEDICAL BLANKET,WARM AIR CCL * Used *[id number] 07:50 [facility] JELCO NEEDLE 4056 *1452475 Used CATHETER, FR5 OPTITORQUE [id number] 07:58 TERUMO MEDICAL FR 5 Used RADIAL TIG 4.0 *[id number] SHEATH, FR6 TRANSRADIAL [id number] 07:50 TERUMO IDInteract FR 6 Used SLENDER 10CM *[id number] CATHETER, QAWALANGIN [employer] [place] [id number] 08:15 VOLCANO Used IMAGING *[id number] Equipment Model, Serial, Lot Number and Expiration Data Description Model Number Serial Number Lot Number Expiration Date CATHETER, QAWALANGIN [employer] [place] [id number] 08-25-2019 IMAGING JR 5.0 DXTERITY CATHETER [id number] 02-25-2020 STENT, 4.0 15MM CAMILLE [id number] 01-19-2019 History: Current Medications Medication Dosage/Unit Route Frequency Last Date/Time Taken Statins (any) Beta Tiffanie ASA History: Risk Factors Family History of Hypertension Dyslipidemia Previous PR Previous Heart Failure Premature CAD Yes No Yes No Yes Prior Valve Prior PCI Prior CABG Surgery No No No Cerebrovascular Peripheral Artery Chronic Lung On Dialysis Diabetes Diabetes Therapy Disease Disease Disease No Yes No No Yes Insulin Labs Hgb (g/dl) Hct (%) WBC (l/cumm) Platelets (thousands) 11.60-17.00 35.00-51.00 4.00-11.00 150.00-450.00 15.8 47 6.3 236 Glucose (mg/dl) BUN (mg/dl) Creatinine (mg/dl) BUN:Creatinine (1:x) 74.00-106.00 7.00-18.00 0.50-1.30 10.00-20.00 241 17 1.1 15.5 Na (meq/l) K (meq/l) 136.00-145.00 3.50-5.10 139 3.9 INR (PTT:PT) 0.90-1.10 1 Troponin I (ng/ml) CPK (u/l) CPK-MB (ng/ML) 0.02-0.05 26.00-308.00 0.50-3.60 0.03 87 3.6 Medication Medication Total Dose (Bolus/Oral) Medication Total Dosage/Unit 1% XYLOCAINE 10 mL BRILLINTA 180 mg FENTANYL 100 mcg HEPARIN 4000 units NTG (IC) 150 mcg RADIAL COCKTAIL 5 mL (Bolus) VERSED 3 mg Medications (Bolus/Oral) Medication Time Given Dosage/Unit Administered By Lewis 1% XYLOCAINE 11/10/2017 7:52:46 AM 10 mL Jude Oseguera 10 mL 1% XYLOCAINE given in lab by Jude Oseguera in Right Radial via Subcutaneous. Ordered by Jude Oseguera. VERSED 11/10/2017 7:52:52 AM 2 mg Bassem Pardo RN 2 mg VERSED given in lab by Bassem Pardo RN in Right Antecubital via Peripheral IV. Ordered by Jude Oseguera. FENTANYL 11/10/2017 7:53:24 AM 50 mcg Bassem Pardo RN 50 mcg FENTANYL given in lab by Bassem Pardo RN in Right Antecubital via Peripheral IV. Ordered by Jude Harrington. Ntg 200mcg Verapamil 2.5mg Heparin RADIAL COCKTAIL 11/10/2017 7:55:50 AM 5 mL (Bolus) Jude Oseguera 2500U 5 mL (Bolus) RADIAL COCKTAIL given in lab by Jude Oseguera in Right Radial via Radial. Using [Solutio n Name]. Ordered by Jude Oseguera. Reason: Ntg 200mcg Verapamil 2.5mg Heparin 2500U. VERSED 11/10/2017 7:56:41 AM 1 mg Bassem Pardo RN 1 mg VERSED given in lab by Bassem Pardo RN in Right Radial via Peripheral IV. Ordered by Sherif Oseguera. HEPARIN 11/10/2017 8:14:04 AM 4000 units Bassem Pardo RN 4000 units HEPARIN given in lab by Bassem Pardo RN in Right Antecubital via Peripheral IV. Ordered by Jude Oseguera. NTG (IC) 11/10/2017 8:33:53 AM 150 mcg Jude Oseguera 150 mcg NTG (IC) given in lab by Jude Oseguera via Intra-coronary. Ordered by Jude Oseguera. FENTANYL 11/10/2017 8:40:08 AM 50 mcg Bassem Pardo RN 50 mcg FENTANYL given in lab by Bassem Pardo RN in Right Antecubital via Peripheral IV. Ordered by Jude Harrington. BRILLINTA 11/10/2017 8:52:39 AM 180 mg Bassem Pardo RN 180 mg BRILLINTA given in lab by Bassem Pardo RN in Per mouth via Oral. Ordered by Jude Oseguera. Medication (Drip) Medication Time Given Dosage/Unit Concentration/Unit Diluent (ml) Solution IV Solutions 11/10/2017 7:38:18 AM 50 mL (IV) NaCl .9 Patient arrived on IV Solutions in Right Antecubital via Peripheral IV. Pump/Drip Flow using NaCl .9. KENGREAL BOLUS 11/10/2017 8:19:26 AM 18 mL 18 mL KENGREAL BOLUS given in lab by Bassem Pardo RN in Right Antecubital via Peripheral IV. Ordered by Jude Oseguera. KENGREAL DRIP 11/10/2017 8:18:21 AM 4.011 mcg/kg/min 50 mg 250 NaCl .9 4.011 mcg/kg/min KENGREAL DRIP given in lab by Bassem Pardo RN in Right Antecubital via Peripheral IV . Pump/Drip Flow = 142 ml/hr using NaCl .9 with a concentration of 50 mg in 250 ml. Ordered by Jude Oseguera. Initial Case Assessment Cardiovascular HR Rhythm NIBP Chest Pain 80 sr 147/97 0 Edema Present Skin color Skin Mild Normal Warm Dry Circulatory - Right Pulses Dorsalis Pedis Femoral Radial 1 1 2 Scale (0,1,2,3,4,d) Circulatory - Left Pulses Dorsalis Pedis Femoral Radial 1 1 Scale (0,1,2,3,4,d) Circulatory - Lower Extremities Color Lower Right Color Lower Left Normal Normal Neurological State Oriented to time-place- Alert Moves all extremities person Respiration - General Respiration Rate SpO2 (%) (B/min) 17 96 Final Case Assessment Cardiovascular HR Rhythm NIBP Chest Pain 80 sr 147/97 0 Edema Present Skin color Skin Mild Normal Warm Dry Circulatory - Right Pulses Dorsalis Pedis Femoral Radial 1 1 2 Scale (0,1,2,3,4,d) Circulatory - Left Pulses Dorsalis Pedis Femoral Radial 1 1 Scale (0,1,2,3,4,d) Circulatory - Lower Extremities Color Lower Right Color Lower Left Normal Normal Neurological State Oriented to time-place- Alert Moves all extremities person Respiration - General Respiration Rate SpO2 (%) (B/min) 17 96 Chronological Log Time Study Chronological Log 7:17:36 Patient arrived via Bed. 7:17:42 Patient Name, D.O.B, / Armband Verified By R.N. 7:37:48 Consent signed by the physician and the patient and verified by the [place] Installer Helper staff. 7:37:51 Pre-op and post- op instructions given; patient acknowledges understanding of instructions. 7:37:52 Verbal Stimulation=2 Physical Stimulation=2 Airway=2 Respiration=2 TOTAL=8. (0=absent, 1=li mited, 2=present) 7:38:06 Allens test performed on the right radial and ulnar artery. Positive 7:38:09 Patient has been NPO for More than 6Hrs. 7:38:11 Skin Breakdown- NONE PER PATIENT 7:38:12 Patient Warmer Placed on the Table. 7:38:16 Yaima Prominences Protected 7:38:17 A # 20 IV was noted in the Antecubital (right). Grade = 0 7:38:18 Patient arrived on IV Solutions in Right Antecubital via Peripheral IV. Pump/Drip Flow usin g NaCl .9. 7:38:19 History and physical on the chart or being dictated. Assessment: Initial Case, HR=80 BPM, Rhythm=sr, QJCI=805/97 mmhg, Chest Pain=0, Edema=Mild, [place] r=Normal, Skin = Warm, Dry Right Pulses: Killian Ped=1, Femoral=1, Radial=2 Left Pulses: Killian Ped=1, Femoral=1 7:38:21 Lower Right Extremities: Color=Normal Lower Left Extremities: Color=Normal Neurological: State=Alert, Ox3, SOLOMON Respiration: Resp=17 B/min, SpO2=96 % 7:38:30 Right Radial and groin(s) prepped with 2% chlorhexidine, and draped after a 3 min. waiting t zay. 7:39:28 MD arrived. Vitals capture started with the following parameters, Patient=Adult, Interval=5 min, Initial Pre auooe=366 mmHg, 7:39:48 Deflation Rate=5 mmHg, Cuff placed on Right Arm 7:40:33 HR=75 bpm, OKWU=076/97 mmhg, SpO2=96.0 %, Pain=0, Leonardo=10, Humphrey=2 7:42:27 HR=78 bpm, AFCJ=601/94 mmhg, SpO2=95.0 %, Pain=0, Leonardo=10, Humphrey=2 7:44:26 HR=77 bpm, WSHS=210/99 mmhg, SpO2=96.0 %, Pain=0, Leonardo=10, Humphrey=2 7:45:21 Pressure channel 1 zeroed. 7:46:29 HR=73 bpm, EKHX=554/93 mmhg, SpO2=95.0 %, Pain=0, Leonardo=10, Humphrey=2 Time Out. Correct patient, correct procedure, correct physician, power injector loaded, or not l oaded with contrast with 7:47:26 surgical team present. Time Out Concurred by MD and individual staff in procedure. 7:48:28 HR=75 bpm, ECNH=902/98 mmhg, SpO2=94.0 %, Pain=0, Leonardo=10, Humphrey=2 7:49:33 Case Start 7:50:29 HR=77 bpm, OCDS=255/102 mmhg, SpO2=95.0 %, Pain=0, Leonardo=10, Humphrey=2 7:52:30 HR=76 bpm, DSAX=820/94 mmhg, SpO2=95.0 %, Pain=0, Leonardo=10, Humphrey=2 7:52:46 10 mL 1% XYLOCAINE given in lab by Jude Oseguera in Right Radial via Subcutaneous. Ordered b y Jude Oseguera. 7:52:52 2 mg VERSED given in lab by Bassem Pardo RN in Right Antecubital via Peripheral IV. Ordered by Jude Oseguera. 7:53:00 Reference ECG taken 7:53:24 50 mcg FENTANYL given in lab by Bassem Pardo RN in Right Antecubital via Peripheral IV. Orde red by Jude Oseguera. 7:54:26 HR=78 bpm, UZBS=713/98 mmhg, SpO2=96 %, Pain=0, Leonardo=10, Humphrey=2 7:55:02 Access site was Right Radial Artery. A SHEATH, FR6 TRANSRADIAL SLENDER 10CM FR 6 was advanced into the Radial (right) using the [place] ruiz 7:55:11 technique. 5 mL (Bolus) RADIAL COCKTAIL given in lab by Jude Oseguera in Right Radial via Radial. Using [So lution Name]. 7:55:50 Ordered by Jude Oseguera. Reason: Ntg 200mcg Verapamil 2.5mg Heparin 2500U. 7:56:41 1 mg VERSED given in lab by Bassem Pardo RN in Right Radial via Peripheral IV. Ordered by Jude Harrington. 7:57:04 HR=86 bpm, GKED=310/96 mmhg, SpO2=94.0 %, Pain=0, Leonardo=10, Humphrey=2 A CATHETER, FR5 OPTITORQUE RADIAL TIG 4.0 FR 5 was advanced over a wire. OMNIPAQUE, 350 MG, 100M L 100ML 7:57:11 was used for injections. 7:58:26 HR=80 bpm, FCKP=222/86 mmhg, SpO2=95.0 %, Pain=0, Leonardo=10, Humphrey=2 Recorded Pressure: Ao, HR=83, Condition=Condition 1 7:59:35 (Aorta) Ao 122/84/102 8:00:16 The LCA was injected and visualized at various angles. OMNIPAQUE, 350 MG, 100ML 100ML used. 8:00:27 HR=82 bpm, ULCP=634/94 mmhg, SpO2=95 %, Pain=0, Leonardo=10, Humphrey=2 8:02:28 HR=87 bpm, NOET=297/93 mmhg, SpO2=88.0 %, Pain=0, Leonardo=10, Humphrey=2 8:04:28 HR=87 bpm, LPLZ=478/94 mmhg, SpO2=88.0 %, Pain=0, Leonardo=10, Humphrey=2 8:05:20 Catheter was removed A JR 5.0 DXTERITY CATHETER fr 5 was advanced over a wire. OMNIPAQUE, 350 MG, 100ML 100ML was use d for 8:05:32 injections. 8:06:31 HR=83 bpm, MHWV=159/95 mmhg, SpO2=94.0 %, Pain=0, Leonardo=10, Humphrey=2 8:08:21 The RCA was injected and visualized at various angles. OMNIPAQUE, 350 MG, 100ML 100ML used. 8:08:32 HR=83 bpm, HKNP=556/89 mmhg, SpO2=94.0 %, Pain=0, Leonardo=10, Humphrey=2 8:10:04 Catheter was removed 8:10:31 HR=82 bpm, DMIC=813/92 mmhg, SpO2=95.0 %, Pain=0, Leonardo=10, Humphrey=2 A XB 3.5 GUIDE CATHETER FR 6 was advanced over a wire. OMNIPAQUE, 350 MG, 100ML 100ML was used f or 8:11:49 injections. 8:13:11 HR=82 bpm, QBER=846/94 mmhg, SpO2=97.0 %, Resp=12 B/min, Pain=0, Leonardo=10, Humphrey=2 8:14:04 4000 units HEPARIN given in lab by Bassem Pardo RN in Right Antecubital via Peripheral IV. O rdered by Jude Oseguera. 8:14:31 HR=83 bpm, VJJU=113/97 mmhg, SpO2=97.0 %, Pain=0, Leonardo=10, Humphrey=2 8:15:31 A WIRE, BALANCE MIDDLEWEIGHT 190CM 190CM was inserted via Radial (right). 8:16:31 HR=88 bpm, MMPE=382/95 mmhg, SpO2=95.0 %, Resp=12 B/min, Pain=0, Leonardo=10, Humphrey=2 4.011 mcg/kg/min KENGREAL DRIP given in lab by Bassem Pardo RN in Right Antecubital via Peripher al IV. Pump/Drip 8:18:21 Flow = 142 ml/hr using NaCl .9 with a concentration of 50 mg in 250 ml. Ordered by Jude Oseguera . 8:18:30 HR=89 bpm, OOES=086/111 mmhg, SpO2=97.0 %, Pain=0, Leonardo=10, Humphrey=2 18 mL KENGREAL BOLUS given in lab by Bassem Pardo RN in Right Antecubital via Peripheral IV. Ord ered by Oumar, 8:19:26 Jude. 8:20:21 Activated Clotting Time Drawn 8:20:28 Interventional wire has crossed the lesion 8:20:33 HR=88 bpm, JSIE=719/98 mmhg, SpO2=98.0 %, Resp=22 B/min, Pain=0, Leonardo=10, Humphrey=2 8:22:31 An CATHETER, [employer] [place] IMAGING was advanced through the lesion. Images saved on to IVUS hard drive 8:22:36 HR=88 bpm, IZVT=304/103 mmhg, SpO2=98.0 %, Resp=20 B/min, Pain=0, Leonardo=10, Humphrey=2 8:23:28 IVUS in progress using CATHETER, [employer] [place] IMAGING 8:24:35 HR=81 bpm, QNIE=697/112 mmhg, SpO2=99.0 %, Pain=0, Leonardo=10, Humphrey=2 8:25:26 IVUS catheter removed 8:26:42 HR=84 bpm, EKLC=983/121 mmhg, SpO2=99.0 %, Resp=17 B/min, Pain=0, Leonardo=10, Humphrey=2 8:27:02 ACT (Normal Range 90-180) = 375 8:28:36 HR=83 bpm, CLPW=179/94 mmhg, SpO2=99.0 %, Pain=0, Leonardo=10, Humphrey=2 A STENT, 4.0 15MM CAMILLE 4.0 15MM was advanced through a XB 3.5 GUIDE CATHETER FR 6 over a WIREHoracio ALANCE 8:28:54 MIDDLEWEIGHT 190CM 190CM. A STENT, 4.0 15MM CAMILLE 4.0 15MM was deployed using a 30 EPIFANIO INDEFLATOR at 16 atmospheres for 30 seconds in 8:29:23 the LAD Prox. 8:30:33 HR=78 bpm, VOPF=179/102 mmhg, SpO2=98.0 %, Resp=19 B/min, Pain=0, Leonardo=10, Humphrey=2 8:32:34 HR=77 bpm, VOJM=826/102 mmhg, Pain=0, Leonardo=10, Humphrey=2 8:33:53 150 mcg NTG (IC) given in lab by Jude Oseguera via Intra-coronary. Ordered by Jude Oseguera. 8:34:31 Delivery device removed 8:34:37 HR=83 bpm, FCYY=591/99 mmhg, SpO2=98.0 %, Pain=0, Leonardo=10, Humphrey=2 8:34:40 An CATHETER, [employer] [place] IMAGING was advanced through the lesion. Images saved on to IVUS hard drive 8:34:52 IVUS in progress using CATHETER, [employer] [place] IMAGING 8:35:59 IVUS catheter removed 8:36:40 HR=84 bpm, EMOF=479/97 mmhg, SpO2=99.0 %, Pain=0, Leonardo=10, Humphrey=2 8:37:14 BMW Wire removed After removing the current catheter a PIGTAIL ANG. INFINITI CATHETER FR 5 was advanced over a WI RE, EXCHANGE 8:38:18 260CM 3MMJ 260CM. 8:38:35 HR=77 bpm, GMNQ=593/95 mmhg, SpO2=98.0 %, Resp=18 B/min, Pain=0, Leonardo=10, Humphrey=2 8:40:08 50 mcg FENTANYL given in lab by Bassem Pardo RN in Right Antecubital via Peripheral IV. Ord ered by Jude Oseguera. 8:40:37 HR=75 bpm, SZSV=452/90 mmhg, SpO2=98.0 %, Resp=19 B/min, Pain=0, Leonardo=10, Humphrey=2 Recorded Pressure: LV, HR=76, Condition=Condition 1 8:41:41 (Left Ventricle) LV 159/13/25 8:42:36 HR=74 bpm, NULG=145/107 mmhg, SpO2=97.0 %, Pain=0, Leonarod=10, Humphrey=2 8:44:35 HR=71 bpm, DBTI=149/95 mmhg, SpO2=97.0 %, Pain=0, Leonardo=10, Humphrey=2 8:45:39 The LV was injected at 10 cc/sec for a total of 40. OMNIPAQUE, 350 MG, 100ML 100ML used. Recorded Pressure: LV, Ao, HR=78, Condition=Condition 1 8:46:37 (Left Ventricle) LV 167/12/35, (Aorta) Ao 133/78/102 8:46:38 HR=76 bpm, IFFJ=551/93 mmhg, SpO2=97.0 %, Resp=17 B/min, Pain=0, Leonardo=10, Humphrey=2 8:47:04 Catheter was removed 8:47:18 Case End Assessment: Final Case, HR=80 BPM, Rhythm=sr, SVKT=634/97 mmhg, Chest Pain=0, Edema=Mild, Color =Normal, Skin = Warm, Dry Right Pulses: Killian Ped=1, Femoral=1, Radial=2 Left Pulses: Killian Ped=1, Femoral=1 8:47:26 Lower Right Extremities: Color=Normal Lower Left Extremities: Color=Normal Neurological: State=Alert, Ox3, SOLOMON Respiration: Resp=17 B/min, SpO2=96 % 8:47:34 Catheter(s) removed without difficulty Radial Compression Device Used. 20 mLs of air placed in BAND, RADIAL COMPRESSION TR LARGE 29 29 CM. Affected 8:47:51 hand 95 % O2 saturation. 8:48:00 No case complications noted. 8:48:03 Cine recording checked. 8:48:04 Bedside Report will be given. 8:48:10 A Left Heart Cath was performed. 8:48:12 Implantable Device card placed in patient's chart. 8:48:39 HR=83 bpm, KYRF=050/97 mmhg, SpO2=99.0 %, Pain=0, Leonardo=10, Humphrey=2 8:50:38 HR=76 bpm, URSV=946/105 mmhg, SpO2=99.0 %, Pain=0, Leonardo=10, Humphrey=2 8:52:38 HR=69 bpm, MRLE=031/100 mmhg, SpO2=98.0 %, Pain=0, Leonardo=10, Humphrey=2 8:52:39 180 mg BRILLINTA given in lab by Bassem Pardo RN in Per mouth via Oral. Ordered by Jude Oseguera. 8:54:32 Vitals capture stopped. 8:59:35 Patient moved to [facility] End Study - Contrast Media Used In Study Contrast Total Opened (mL) Total Used (mL) Total Wasted (mL) Omnipaque 175 175 0 End Study - Maximum Contrast Load Max Contrast Load (mL) 536.4 End Study - Radiation Exposure Fluoro Time (minutes) 13.9 End Study - Sheaths Sheaths Pulled By Sheath Hold Time (min) Anthony Haines End Study - Patient Disposition Complications Transferred To Interventional Outcome No Critical Care Bed successful
[2017-11-10] MEDS ORDERED: SODIUM CHLORIDE 0.9% FLUSH 10 ML FLUSH IV FLUSH PRN (09:15)
[2017-11-10] MEDS ORDERED: CANGRELOR INJ 50,000 MCG in SODIUM CHLOR 0.9% 250 ML INJ 250 ML IV ONE (09:15)
[2017-11-10] MEDS ORDERED: NITROGLYCERIN 0.4 MG SL 25 TABS/BTL SL PRN (09:15)
[2017-11-10] MEDS ORDERED: MISC INFORMATION XX ONE (09:15)
--- NOTE | 2017-11-10 09:41 | MA ---
cc: Jude Oseguera MD, Beth A MD DATE: 11/10/2017 PROCEDURES PERFORMED: 1. Right radial artery access. 2. Heart catheterization. 3. Left ventriculography. 4. Coronary angiography. 5. Intravascular ultrasound and stenting of the proximal left anterior descending coronary artery. DESCRIPTION OF PROCEDURE: The patient was brought to the cardiac [place] Finish Operator Tig Welder in a fasting state. The right wrist and the groin was prepped and draped in sterile fashion. Using 1% lidocaine for local anesthesia, access was easily obtained and a Terumo Slender Sheath placed. Next, a [place] catheter was used to image the left coronary artery. They were not satisfactory to image the right coronary artery, so this was exchanged over wire to a right 5 Mitali which provided the ability to obtain angiograms of the right coronary artery. I decided to stent the LAD. A 6-Vietnamese XP 3.5 guiding catheter was used to engage the left main. Intravenous heparin and intravenous Cangrelor were administered. ACT was above therapeutic. The LAD was then wired with a BMW wire down to the apex. Intravascular ultrasound was performed. This confirmed that the 4.0 stent would be the correct size. Next, the vessel was directly stented utilizing a 4.0 x 15 mm Resolute [place] stent that was deployed at 16 atmospheres. Angiography demonstrated a superb result. IVUS was performed again, verifying good stent apposition. The patient only had minimal discomfort during the stent inflation. The wire and guiding catheter were removed and exchanged over wire to an angled pigtail catheter with only mild difficulty. The aortic valve was crossed with a J-wire and then the pigtail catheter advanced into the left ventricle. Left ventriculography was then performed, followed by a pullback. There was a gradient. See the report below. The pigtail catheter was then removed over a wire. The sheath is now removed with a Terumo band placed. The patient tolerated the procedure well and there were no complications. Estimated blood loss was 10 mL FINDINGS: I. HEMODYNAMICS: Left ventricular pressure was 167/12 with an end-diastolic pressure of 35. Aortic pressure was 133/78 with a mean of 102. During pullback from the left ventricle to the aorta, there was a mean gradient of 31.7 mm and a peak gradient of 34 mm. II. LEFT VENTRICULOGRAPHY: Left ventriculography shows an ejection fraction of about 50% with apical hypokinesis. III. CORONARY ANGIOGRAPHY: Left main coronary artery is large and normal appearing. Left anterior descending is a large vessel that has a 90% eccentric very proximal stenosis. It is proximal to the first septal and first diagonal branch. Circumflex artery appears normal. The right coronary artery appears normal. The right coronary artery is technically dominant. The flow in the LAD was only CARLOS grade 2. IV. RESULTS OF STENTING: Following stenting of the proximal LAD, a 0% residual stenosis has been achieved without evidence of thrombus or dissection. There was moravian of grade CARLOS 3 flow. CONCLUSIONS: 1. Mildly elevated left ventricular end-diastolic pressure. 2. Moderate aortic stenosis with a mean aortic valve gradient of 31.7 mmHg. 3. Low normal ejection fraction with apical hypokinesis, probably due to stunned myocardium. 4. Critical proximal left anterior descending disease, now successfully stented with a drug-eluting stent. PLAN: 1. The patient will be discharged home later on 81 mg of aspirin plus Brilinta 90 mg p.o. b.i.d. 2. Would continue Brilinta for 1 year, as long as there are no contraindications. If the patient remains stable and since his troponins are normal, it is quite possible he will be able to go home around 5 p.m. today. MD ROMEL Chun/JESUS , 09:01 AM , 09:40 AM
[2017-11-10] MEDS: ASPIRIN 325 MG TAB PO SCH (10:17)
[2017-11-10] MEDS: LISINOPRIL 20 MG TAB PO SCH (10:17)
[2017-11-10] MEDS: cloNIDine HCL 0.1 MG TAB PO SCH (10:17)
[2017-11-10] MEDS: GABAPENTIN 400 MG CAP PO SCH ×2 (10:17→12:12)
[2017-11-10] MEDS: METOPROLOL TARTRATE 25 MG TAB PO SCH (10:18)
[2017-11-10] MEDS: POTASSIUM CHLORIDE 20 MEQ CONTROLLED RELEASE TAB PO SCH (10:18)
[2017-11-10] MEDS: FUROSEMIDE 40 MG TAB PO SCH (10:18)
[2017-11-10] MEDS: ALLOPURINOL 300 MG TAB PO SCH (10:18)
[2017-11-10] MEDS ORDERED: BACITRACIN OINT 0.9 GM PKT TOP ONE (10:35)
[2017-11-10] MEDS ORDERED: SODIUM CHLOR 0.9% 1000 ML INJ 1,000 ML IV SCH (11:00)
[2017-11-10] MEDS ORDERED: BRIL90TA PO (12:43)
[2017-11-10] MEDS ORDERED: ISOS60TA PO (12:43)
--- NOTE | 2017-11-10 12:46 | HHI.DCPOC ---
Discharge Care Plan Diagnosis: (1) CAD (coronary artery disease) (2) Stented coronary artery Goals to Promote Your Health * To prevent worsening of your condition and complications * To maintain your health at the optimal level Directions to Meet Your Goals Take your medications as prescribed Follow your dietary instruction Follow activity as directed Keep your appointments as scheduled Take your immunizations and boosters as scheduled If your symptoms worsen call your PCP, if no PCP go to Urgent Care Center or Emergency Room Smoking is Dangerous to Your Health. Avoid second hand smoke Call the 24-hour hour crisis hotline for domestic abuse at Juliette Bacon PA-C Nov 10, 2017 12:46 pm
--- NOTE | 2017-11-10 13:22 | HHI.PR ---
Subjective Remarks had cardiac cath earlier. in no acute distress. denies chest pain or sob. Objective Vitals Vital Signs Date Time Temp Pulse Resp B/P (MAP) Pulse Ox O2 Delivery O2 Flow Rate FiO2 11/10/17 09:10 98 Room Air 11/10/17 07:47 75 160/100 11/10/17 07:46 Room Air 11/10/17 03:33 77 11/10/17 02:02 97.1 70 17 143/70 (94) 97 11/09/17 20:24 97.8 89 18 147/78 (101) 96 11/09/17 20:00 Room Air 11/09/17 15:52 98.7 92 18 142/75 (97) 96 I/O 11/09/17 11/09/17 11/09/17 11/10/17 11/10/17 11/10/17 07:00 15:00 23:00 07:00 15:00 23:00 Intake Total 240 ml 480 ml Balance 240 ml 480 ml Intake Oral 240 ml 480 ml # Voids 1 1 3 Result Diagram: 11/10/17 0418 11/09/17 0430 Imaging Last Impressions Chest X-Ray 11/09/17415 Signed Impressions: Service Date/Time: Thursday, November 09, 2017 04:57 - CONCLUSION: Mild left base consolidation. Vaughn Lopez MD Objective Remarks GENERAL: This is a well-nourished, well-developed patient, in no apparent distress. CARDIOVASCULAR: Regular rate and regular rhythm without murmurs, gallops, or rubs. RESPIRATORY: Clear to auscultation. Breath sounds equal bilaterally. No wheezes , rales, or rhonchi. GASTROINTESTINAL: Abdomen soft, non-tender, nondistended. Normal, active bowel sounds MUSCULOSKELETAL: Extremities without clubbing, cyanosis, or edema. NEURO: Alert & Oriented x4 to person, place, time, situation. Moves all ext x4 Procedures cardiac cath. Medications and IVs Inpatient Medications Acetaminophen (Tylenol) 500 mg Q4H PRN PO HEADACHE; Start 11/09/17 at 06:45 Acetaminophen/ Hydrocodone Bitart ([place] 7.5-325 Mg) 1 tab Q4H PRN PO PAIN SCALE 1 TO 5; Start 11/09/17 at 06:45 Allopurinol (Zyloprim) 300 mg DAILY PO Last administered on 11/10/17at 10:18; Start 11/09/17 at 09:00 Amlodipine Besylate (Norvasc) 10 mg DAILY PO Last administered on 11/10/17at 10: 18; Start 11/09/17 at 09:00 Aspirin (Aspirin Chew) 81 mg DAILY PO ; Start 11/11/17 at 09:00 Aspirin (Aspirin) 325 mg DAILY PO Last administered on 11/10/17at 10:17; Start 11/09/17 at 09:00; Stop 11/10/17 at 10:31; Status DC Atorvastatin Calcium (Lipitor) 80 mg HS PO Last administered on 11/09/17at 21:13 ; Start 11/09/17 at 21:00 Bacitracin (Bacitracin Oint Packet) 0.9 gm ONCE ONCE TOP ; Start 11/10/17 at 10 :35; Stop 11/10/17 at 10:54; Status DC Cangrelor 07360 mcg/Sodium Chloride 250 ml @ 0 mls/hr ONCE ONCE IV ; Start at 09:15; Stop 11/10/17 at 10:52; Status DC Chlorhexidine Gluconate (Chlorhexidine 2% Cloth) 3 pack [employer] PRN TOPICAL SEE LABEL COMMENTS; Start 11/10/17 at 06:45; Stop 11/13/17 at 06:44 Clonazepam (KlonoPIN) 1 mg HS PO Last administered on 11/09/17at 21:12; Start at 21:00 Clonidine (Catapres) 0.1 mg BID PO Last administered on 11/10/17at 10:17; Start 11/09/17 at 09:00 Dextrose (D50w (Vial) Inj) 50 ml UNSCH PRN IV PUSH HYPOGLYCEMIA-SEE COMMENTS; Start 11/09/17 at 06:45 Diazepam (Valium) 5 mg [employer] PO Last administered on 11/10/17at 06:43; Start 11/09/17 at 09:45; Stop 11/13/17 at 09:44 Diphenhydramine HCl (Benadryl) 50 mg [employer] PO Last administered on at 06:44; Start 11/09/17 at 09:45; Stop 11/13/17 at 09:44 Furosemide (Lasix) 40 mg DAILY PO Last administered on 11/10/17at 10:18; Start 11/09/17 at 09:00 Gabapentin (Neurontin) 400 mg QID PO Last administered on 11/10/17at 12:12; Start 11/09/17 at 09:00 Glucagon (Glucagon Inj) 1 mg UNSCH PRN OTHER HYPOGLYCEMIA-SEE COMMENTS; Start 11/09/17 at 06:45 Heparin Sodium (Porcine) (Heparin Inj) 4,000 units ONCE ONCE IV PUSH Last administered on 11/09/17at 13:54; Start 11/09/17 at 09:45; Stop 11/09/17 at 09:49 ; Status DC Heparin Sodium/ Dextrose 250 ml @ 10 mls/hr TITRATE PRN IV Coagulation Management Last administered on 11/09/17at 13:55; Start 11/09/17 at 09:45; Stop 11/10/17 at 10:34; Status DC Insulin Aspart (NovoLOG SUPPLEMENTAL SCALE) 1 ACHS SLIDING SCALE SQ Last administered on 11/10/17at 12:00; Start 11/09/17 at 08:00 Isosorbide Mononitrate (Imdur) 60 mg DAILY@07 PO ; Start 11/11/17 at 07:00 Lactated Ringer's 1,000 ml @ 30 mls/hr Q24H PRN IV SEE LABEL COMMENTS; Start at 06:45; Stop 11/13/17 at 06:44 Levothyroxine Sodium (Synthroid) 75 mcg DAILY@0600 PO Last administered on 11/10at 06:43; Start 11/09/17 at 07:16 Lisinopril (Prinivil) 40 mg DAILY PO Last administered on 11/10/17at 10:17; Start 11/09/17 at 09:00 Melatonin (Melatonin) 10 mg HS PRN PO SLEEP Last administered on 11/09/17at 21: 12; Start 11/09/17 at 06:45 Metoprolol Tartrate (Lopressor) 25 mg [employer] PRN PO SEE LABEL COMMENTS; Start 11/10/17 at 06:45; Stop 11/13/17 at 06:44 Miscellaneous Information 1 ONCE ONCE XX ; Start 11/10/17 at 09:15; Stop at 10:52; Status DC Morphine Sulfate (Morphine Inj) 2 mg Q3HR PRN IV PUSH PAIN SCALE 6 TO 10; Start 11/09/17 at 06:45 Nitroglycerin (Nitroglycerin 2% Oint) 1 inch Q6HR TOPICAL Last administered on 11/10/17at 06:44; Start 11/09/17 at 12:00 Nitroglycerin (Nitrostat Sl) 0.4 mg Q5M PRN SL CHEST PAIN; Start 11/10/17 at 09 :15 Nortriptyline HCl (Pamelor) 75 mg HS PO Last administered on 11/09/17at 21:13; Start 11/09/17 at 21:00 Patient Own Medication 80 ea DAILY SQ ; Start 11/09/17 at 09:00 Potassium Chloride (KCl) 20 meq BID PO Last administered on 11/10/17at 10:18; Start 11/09/17 at 09:00 Povidone Iodine (Betadine 5% Antisepsis Kit) 1 applic [employer] PRN EACH NARE SEE LABEL COMMENTS; Start 11/10/17 at 06:45; Stop 11/13/17 at 06:44 Sodium Chloride (NS Flush) 2 ml BID IV FLUSH ; Start 11/10/17 at 21:00 Ticagrelor (Brilinta) 90 mg BID PO ; Start 11/10/17 at 21:00 A/P Problem List: (1) Chest pain, rule out acute myocardial infarction ICD Code: R07.9 - Chest pain, unspecified Status: Acute Assessment and Plan A/P CAD- s/p cardiac cath with critical proximal left anterior descending disease, now successfully stented with a drug-eluting stent. continue aspirin,imdur and statin and Brilinta. - cleared by cardiology for discharge. -hypertension; resumed home meds -diabetes mellitus; resume metformin upon discharge. -history of CHF- continue lasix -hypothyroidism; resumed Levothyroxine -DVT prophylaxis with subq Heparin Discharge Planning cleared by cardiology for discharge this evening. will dc home. see med list. f/u; pcp and cardiology. d/w the patient and MAURICE. Kayli Pascal MD Nov 10, 2017 13:22
[2017-11-10] MEDS ORDERED: METO25TA3 PO (13:27)
[2017-11-10] MEDS ORDERED: METF1000 PO (13:27)
[2017-11-10] MEDS ORDERED: TICAGRELOR 90 MG TAB PO SCH (21:00)
[2017-11-10] MEDS ORDERED: SODIUM CHLORIDE 0.9% FLUSH 10 ML FLUSH IV FLUSH SCH (21:00)
--- NOTE | 2017-11-10 22:53 | EKG ---
Date Performed: 11/09/2017 Time Performed: 16:52:07 PTAGE: 62 years EKG: Sinus rhythm WITH FIRST DEGREE AV BLOCK SEPTAL MYOCARDIAL INFARCTION ABNORMAL ECG PREVIOUS TRACING : 11/09/2017 12.10 Since the previous tracing, no significant change noted DOCTOR: Mayela Allen Interpretating Date/Time 11/10/2017 22:51:12
--- NOTE | 2017-11-10 23:13 | EKG ---
Date Performed: 11/09/2017 Time Performed: 12:10:45 PTAGE: 62 years EKG: Sinus rhythm WITH FIRST DEGREE AV BLOCK MODERATE T-WAVE ABNORMALITY, CONSIDER LATERAL ISCHEMIA ABNORMAL ECG PREVIOUS TRACING : 11/09/2017 04.10 Since the previous tracing, no significant change noted DOCTOR: Mayela Allen Interpretating Date/Time 11/10/2017 23:13:00
[2017-11-11] MEDS ORDERED: ISOSORBIDE MONONITRATE 60 MG CR TAB (IMDUR) PO SCH (07:00)
[2017-11-11] MEDS ORDERED: ASPIRIN 81 MG CHEW TAB PO SCH (09:00)
== END 2017-11-10 17:10 | disposition home or self-care (01) ==
LOC: NEPC 03:58 → NEDA 06:50 → NEDH 07:50 → NEPGCP 12:49 → HPAC 11-10 09:34 → HDIC 11-10 09:40
PROVIDERS: ADMIT Internal Medicine; ATTEND Internal Medicine
DX: I25.10 Atherosclerotic heart disease of native coronary artery without angina pectoris (principal); R07.89 Other chest pain; R06.02 Shortness of breath; I44.0 Atrioventricular block, first degree; R94.39 Abnormal result of other cardiovascular function study; R94.31 Abnormal electrocardiogram [ECG] [EKG]; R11.0 Nausea; R61 Generalized hyperhidrosis; I11.0 Hypertensive heart disease with heart failure; I50.9 Heart failure, unspecified; E11.9 Type 2 diabetes mellitus without complications; E78.5 Hyperlipidemia, unspecified; E03.9 Hypothyroidism, unspecified; G47.30 Sleep apnea, unspecified; M17.0 Bilateral primary osteoarthritis of knee; I35.0 Nonrheumatic aortic (valve) stenosis; R91.8 Other nonspecific abnormal finding of lung field; M48.00 Spinal stenosis, site unspecified; E66.01 Morbid (severe) obesity due to excess calories; F17.290 Nicotine dependence, other tobacco product, uncomplicated; Z79.891 Long term (current) use of opiate analgesic; Z79.899 Other long term (current) drug therapy; Z79.82 Long term (current) use of aspirin; Z79.84 Long term (current) use of oral hypoglycemic drugs; Z86.73 Personal history of transient ischemic attack (TIA), and cerebral infarction without residual deficits
CPT/HCPCS: 71045; 80053; 82550; 82552; 82948; 83690; 83735; 83880; 84484; 85002; 85025; 85610; 85730; 92928; 92978; 93005; 93306; 93458; 96365; 96366; 96372; 99152; 99153; 99285; C1753; C1769; C1874; C1887; C1893; C9460; G0378; J1644; J1815; J2250; J3010; J7030; Q0163; Q9967